=== PATIENT | male | born 1990 | race Caucasian/White ===

== ENCOUNTER 2022-07-24 16:16 | Outpatient (REF) | payer MEDICAID, SELFPAY ==
[2022-07-26 15:18] LABS: Acrosom Defect 25.5 %; Appearance Normal; Container Type 50 mL Conical; Double Forms 0.5 %; Midpiece Defect 20.5 %; Motile/Ejaculate 242.9 x10(6) (>=9.0); Motile/mL 161.9 x10(6) (>=6.0); Motility 76 % (>=40); Semen Volume 1.5 mL (>=1.5); Study Type Semen; Tail Defect 22.5 %
== END 2022-07-24 16:17 | disposition home or self-care (01) ==
LOC: LBN 16:16
PROVIDERS: Visit Provider Obstetrics & Gynecology
DX: Z31.41 Encounter for fertility testing (principal)
CPT/HCPCS: 89240; 89310